=== PATIENT | male | born 1935 ===

== ENCOUNTER → 2017-05-08 09:21 | Outpatient (CLI) | payer OTHER | END | disposition home or self-care (01) | LOC: LAB 09:21 | DX: R50.9 Fever, unspecified (principal); R30.9 Painful micturition, unspecified; R82.79 Other abnormal findings on microbiological examination of urine ==

== ENCOUNTER 2017-06-14 08:20 | Outpatient (CLI) | payer OTHER | END 2017-06-14 08:26 | disposition home or self-care (01) | LOC: LAB 08:20 | DX: K74.69 Other cirrhosis of liver (principal) ==

== ENCOUNTER → 2017-09-25 | Outpatient (CLI) | payer OTHER | END | disposition home or self-care (01) | LOC: LAB 09:03 | DX: K74.60 Unspecified cirrhosis of liver (principal); I11.0 Hypertensive heart disease with heart failure; D58.2 Other hemoglobinopathies; K76.1 Chronic passive congestion of liver; E78.2 Mixed hyperlipidemia; E04.0 Nontoxic diffuse goiter; E11.9 Type 2 diabetes mellitus without complications; N39.0 Urinary tract infection, site not specified; D53.8 Other specified nutritional anemias; N40.0 Benign prostatic hyperplasia without lower urinary tract symptoms; D55.8 Other anemias due to enzyme disorders ==

== ENCOUNTER 2018-10-24 10:11 | Outpatient (CLI) | payer OTHER | END 2018-10-24 10:15 | disposition home or self-care (01) | LOC: LAB 10:11 | DX: I11.0 Hypertensive heart disease with heart failure (principal); E11.9 Type 2 diabetes mellitus without complications; Z12.11 Encounter for screening for malignant neoplasm of colon; N39.0 Urinary tract infection, site not specified; N36.2 Urethral caruncle; E78.2 Mixed hyperlipidemia; E55.9 Vitamin D deficiency, unspecified; E04.0 Nontoxic diffuse goiter; E61.8 Deficiency of other specified nutrient elements; B96.89 Other specified bacterial agents as the cause of diseases classified elsewhere ==

== ENCOUNTER 2019-03-04 09:21 | Outpatient (CLI) | payer OTHER | END 2019-03-04 15:00 | disposition home or self-care (01) | LOC: LAB 09:21 | DX: C61 Malignant neoplasm of prostate (principal); K74.69 Other cirrhosis of liver; I11.0 Hypertensive heart disease with heart failure; D53.8 Other specified nutritional anemias; N39.0 Urinary tract infection, site not specified; N36.2 Urethral caruncle; E04.8 Other specified nontoxic goiter; E55.9 Vitamin D deficiency, unspecified; E58 Dietary calcium deficiency; E78.2 Mixed hyperlipidemia; B96.5 Pseudomonas (aeruginosa) (mallei) (pseudomallei) as the cause of diseases classified elsewhere ==

== ENCOUNTER → 2019-04-15 10:13 | Outpatient (CLI) | payer OTHER | END | disposition home or self-care (01) | LOC: LAB 10:13 | DX: K74.69 Other cirrhosis of liver (principal) ==

== ENCOUNTER 2019-06-28 16:24 | Emergency (ER) | payer OTHER ==
[~2019-06-28] VITALS: Ht 170.2 cm; Wt 86.2 kg
[2019-06-28] MEDS ORDERED: ALTACE1.25 MG (16:33)
== END 2019-06-28 19:47 | disposition home or self-care (01) ==
LOC: ER 16:24
DX: S00.03XA Contusion of scalp, initial encounter (principal); S41.111A Laceration without foreign body of right upper arm, initial encounter; G30.8 Other Alzheimer's disease; F02.80 Dementia in other diseases classified elsewhere, unspecified severity, without behavioral disturbance, psychotic disturbance, mood disturbance, and anxiety; W18.09XA Striking against other object with subsequent fall, initial encounter; Y93.89 Activity, other specified; Y92.59 Other trade areas as the place of occurrence of the external cause; Y99.8 Other external cause status

== ENCOUNTER 2019-07-09 10:20 | Outpatient (CLI) | payer OTHER ==
[~2019-07-09 10:20] MED LIST: ALTACE1.25 MG
== END 2019-07-09 10:24 | disposition home or self-care (01) ==
LOC: LAB 10:20
DX: K74.60 Unspecified cirrhosis of liver (principal)